=== PATIENT | male | born 1940 | race Caucasian/White ===

== ENCOUNTER → 2020-04-23 | Outpatient (CLI) | payer BC ==
[~2020-04-23] MED LIST: ASA81BEC PO; ATENOLOL 50MG T50 M1 PO; ATORVASTATIN CA40 MG PO; CENTRUM SILVER1 EAC2 PO; COUMADIN 5 MG TA5 M1 PO; GLUCOTROL5 MG PO; HYDROCODON-ACE1 EAC7 PO; LEVAQUIN 500 M500 M2 PO; LISINOPRIL20 MG; LISINOPRIL20 MG PO; MULTAQ 400 MG400 MG PO; PROTONIX40 M1 PO; UNICOMPLEX M TA1 TA1 PO; UROXATRAL PO; UROXATRAL10 MG PO; VIAGRA100 MG PO; XANAX 0.25 MG0.25 MG PO; XARELTO10 MG PO; XARELTO20 MG PO; ZESTRIL40 MG PO
== END ==
LOC: SJCVCIMAG 09:04
PROVIDERS: ATTEND Internal Medicine
DX: I08.8 Other rheumatic multiple valve diseases (principal); I65.23 Occlusion and stenosis of bilateral carotid arteries; E78.5 Hyperlipidemia, unspecified; I25.10 Atherosclerotic heart disease of native coronary artery without angina pectoris; I48.0 Paroxysmal atrial fibrillation; Z95.1 Presence of aortocoronary bypass graft; Z95.2 Presence of prosthetic heart valve

== ENCOUNTER → 2020-06-11 | Outpatient (CLI) | payer BC ==
[~2020-06-11] MED LIST changes: +CLARITIN10 M3 PO; +CLOPIDOGREL75 MG PO; +ELIQUIS5 MG PO; +FLOMAX0.4 MG PO; +LOPRESSOR50 MG PO; +METFORMIN HCL500 M3 PO; +ORADENT 0.1% DEN5 G1 TOP; +POTASSIUM20 PO; +TESTOSTERO200 MG/1 M IM; +TORSEMIDE20 MG PO; +TYLENOL325 MG PO
== END ==
LOC: SJCVCIMAG 11:37
PROVIDERS: ATTEND Internal Medicine
DX: I08.1 Rheumatic disorders of both mitral and tricuspid valves (principal); I25.10 Atherosclerotic heart disease of native coronary artery without angina pectoris; R53.83 Other fatigue; Z98.890 Other specified postprocedural states

== ENCOUNTER → 2020-06-11 | Outpatient (CLI) | payer BC, OTHER ==
[~2020-06-11] MED LIST changes: -CLARITIN10 M3 PO; -CLOPIDOGREL75 MG PO; -ELIQUIS5 MG PO; -FLOMAX0.4 MG PO; -LOPRESSOR50 MG PO; -METFORMIN HCL500 M3 PO; -ORADENT 0.1% DEN5 G1 TOP; -POTASSIUM20 PO; -TESTOSTERO200 MG/1 M IM; -TORSEMIDE20 MG PO; -TYLENOL325 MG PO
== END ==
LOC: LAB 13:15
PROVIDERS: ATTEND Internal Medicine
DX: Z01.812 Encounter for preprocedural laboratory examination (principal); Z20.822 Contact with and (suspected) exposure to COVID-19

== ENCOUNTER 2020-06-14 06:30 | Observation (INO) | payer BC, OTHER ==
[2020-06-14] VITALS (10 sets, daily range): BP systolic 105–141; BP diastolic 73–93
[~2020-06-14] VITALS: Ht 175.3 cm; Wt 107.5 kg
[2020-06-14] MEDS ORDERED: TYLENOL325 MG PO ×2 (07:37)
[2020-06-14] MEDS ORDERED: ELIQUIS5 MG PO ×2 (07:38)
[2020-06-14] MEDS ORDERED: MULTAQ 400 MG400 MG PO ×2 (07:39)
[2020-06-14] MEDS ORDERED: CLARITIN10 M3 PO ×2 (07:40)
[2020-06-14] MEDS ORDERED: LOPRESSOR50 MG PO ×2 (07:41)
[2020-06-14] MEDS ORDERED: METFORMIN HCL500 M3 PO ×2 (07:41)
[2020-06-14] MEDS ORDERED: POTASSIUM20 PO ×2 (07:42)
[2020-06-14] MEDS ORDERED: FLOMAX0.4 MG PO ×2 (07:42)
[2020-06-14] MEDS ORDERED: TESTOSTERO200 MG/1 M IM ×2 (07:43)
[2020-06-14] MEDS ORDERED: TORSEMIDE20 MG PO ×2 (07:43)
[2020-06-14] MEDS ORDERED: ORADENT 0.1% DEN5 G1 TOP ×2 (07:44)
[2020-06-14 07:53] LABS: HEMOGLOBIN 13.1 gm/dL (14.0-18.0); MCH 31.3 pg (26.0-34.0); MCHC 32.7 g/dL (28.0-37.0); MCV 95.6 fL (80.0-100.0); RBC 4.18 mil/uL (4.50-6.00); RDW 15.5 % (10.5-14.5); WBC 9.8 thou/uL (4.0-11.0)
[2020-06-14 07:58] LABS: CALCIUM 10.1 mg/dL (8.5-10.1); CREATININE 1.2 mg/dL (0.7-1.3)
--- NOTE | 2020-06-14 12:46 | CATHLAB ---
[facility] [address] [place] [address] INVASIVE PROCEDURE REPORT Name: YANELY SINCLAIR Room #: 214-P [facility] M.R.#: [id number] Admission: 06/14/20 Attend Phys: Tulio Harris MD, Discharge: Date of : 38 Report #: [id number] THIS REPORT FOR: cc: LORI BUSCH FAMILY PHYSICIAN or PCP Tulio Harris MD [facility] ~ APPROVED REPORT Study performed: 06/14/2020 07:35:31 Patient Details Patient Status: Out-Patient Room #: The patient is a 80 year-old male Event Personnel Tulio Harris Supervisor Rice Milling, Mary Koenig RN RN, Deana Andujar RTR, RUBBER BLOCK LAYER Monitor, Marlen Haddad Procedures Performed Art Access - R femoral artery* Coronary Angiography Only [id number] CORANG Supravalvular Aortography Injection [id number] ISVA CHRISTA Place w/wo Plasty Single RCA 747599 41114 Initial Mod Sed Same Phys/QHP Gr5y 611036 91439 Mod Sed Same Phys/QHP Ea 969293 Indication Dyspnea Procedure Narrative The patient was brought electively to the Cardiac Catheterization Laboratory and was prepped and draped in a sterile manner. The Right Groin^ was infiltrated with 1% Lidocaine subcutaneous anesthesia. A PINNACLE 6FR Sheath #[id number] sheath was inserted into the RFA^. Coronary angiography was performed using coronary diagnostic catheters. The right coronary system was accessed and visualized with a JR4 catheter. The left coronary system was accessed and visualized with a 6FR JL5 #[id number] catheter. An aortogram of the ascending aorta was performed. Pre-demployment femoral angiogram was performed . Closure device was deployed with a 6 Fr MYNXGRIP 6/7F #[id number]. The patient tolerated the procedure well and there were no complications associated with the procedure. There was no hematoma. Intraoperative Conscious Sedation Sedation start time: 08:23 Case end Time: [facility] [employer] [place] [address] INVASIVE PROCEDURE REPORT Name: YANELY SINCLAIR Room #: 214-P [facility]#: [id number] Admission: 06/14/20 Attend Phys: Tulio Harris, Discharge: Date of : 39 Report #: [id number] 09:45 Fentanyl 100 mcg Versed 2.0 mg Fluoro Time: 16.10 minutes Dose: DAP 81041.50 cGycm2 2625 mGy Contrast Type and Amount: Visipaque 240 ml Coronary Angiography The patient's coronary anatomy is co- dominant. [place] Artery Percent Stenosis Proximal, supravalvular aortography demonstrated a well-seated aortic bioprosthetic valve. No aortic insufficiency. No ascending aorta dilatation or dissection.. No nonselective vein graft was seen, presumed occluded. Diagnostic Cath Left Main Normal left main LAD Mild 20% proximal and mid LAD plaquing. Mid LAD stent widely patent Diagonal 1 Small first diagonal branch, normal Diagonal 2 Moderate second diagonal branch, normal Circumflex 30-40% proximal and mid circumflex plaquing. Occluded distal circumflex before a small terminal marginal branch OM1 Large OM1, mild plaquing OM2 occluded OM2 Right Coronary Mild 20-30% proximal right coronary plaquing. Mid right coronary stent with 85% stenosis of the distal margin of an old stent R PDA Mild plaquing of the origin of the posterior descending Left Ventriculography Left Ventriculography was not performed. Hemodynamics The aortic pressure is 133/77 mmHg with a mean of 101 mmHg. PCI Technique Lesion Anticoagulation was achieved with Heparin, Integrilin. Patient was preloaded with Plavix. Percutaneous coronary intervention was performed on the mid right coronary artery. A LAUNCHER 6FR JR 4 #[id number] Guide Catheter was used to engage the right coronary ostium. A Luge Wire .014 x 182CM #[id number] Interventional Guidewire was used to cross the lesion. BALLOON DILATION [facility] [address] [place] [address] INVASIVE PROCEDURE REPORT Name: YANELY SINCLAIR Room #: 214-P [facility] M.R.#: [id number] Admission: 06/14/20 Attend Phys: Tulio Harris, Discharge: Date of : 38 Report #: [id number] A Balloon catheter Euphora RX 2.5 x 12 #[id number] was inserted and inflated up to 16.00atm for 31seconds. Additional Inflation: 16.00atm for 24seconds. STENT DEPLOYMENT A drug-eluting stent RESOLUTE BEST RX 3.0 X 15 #[id number] was inserted and inflated up to 12.00atm for 36seconds. POST STENT DEPLOYMENT BALLOON DILATION A Balloon catheter Euphora NC RX 3.0 x 12 #[id number] was inserted and inflated up to 16.00atm for 36seconds. Additional Inflation: 20.00atm for 36seconds. Additional Inflation: 20.00atm for 9seconds. Final angiography reveals 0 % stenosis with MESHA 3 flow. Conclusion 1. Normal left main 2. Mild LAD plaquing. 3. Occluded distal circumflex before the origin of the second, small marginal branch. Failed sequential SVG from distal OM to PDA 4. Severe mid RCA disease stented with a 3.0 x 15 Resolute stent, post-dilated to 3.2mm 5. Normal EF by recent echocardiography Recommendations Aggressive Medical Therapy <ELECTRONICALLY SIGNED> By: Tulio Harris MD, [facility] 06/14/20 1246 1246 1246 Tulio Harris MD, FAC /INF
[2020-06-14] MEDS ORDERED: CLOPIDOGREL75 MG PO ×2 (13:05)
--- NOTE | 2020-06-14 20:01 | NUR ---
PT. ARRIVED AT FLOOR AROUND 1030; PT. AOX4; NO C/O PAIN; EDUCATED ABOUT BED REST UNTIL 1540; ST. UNDERSTANDING; EDUCATED ABOUT HOLDING PRESSURE IF COUGHIN OR LAUGHING; ST. UNDERSTANDING; EDUCATED ABOUT CALLING IF NOTICED SWELLING OR PAIN INCREASE BY SECONDS; ST. UNDERSTANDING; AT LUNCH TIME PT. C/O R SHOULDER PAIN; PRN ACETAMINOPHEN GIVEN; ST. HAVING ALLERGIES TO CODEINE; HYDROCODONE ON EMAR; PER PT. DOES NOT REMEMBER TAKING MEDICATION BEFORE; [place] TH[place] NOTIFIED; ORDERS RECEIVED; D/C HYDROCODONE; VIDALUT ON THE MONITOR; HR ON THE 130s WITH EXERTION; AMBULATE AROUND THE UNIT; HR ON THE 130s; [place]H THOM[place] NOTIFIED; PER NASH THOMPSON IF HR SUSTAINED ON THE 130s GIVE METOPROLOL EARLIER; AT DINNER PT'S HR ON THE 130s; METOPROLOL GIVEN; HR SUSTAINED ON THE 130s; EKG ORDER PER PROTOCOL; KIRAN; DR. CEDEÑO NOTIFIED; ORDERS RECEIVED; IV LOPRESSOR GIVEN; REASSESSMENT HR ON THE 110s; PASSED ON REPORT; ADMISSION PERFORMED; ASSESSMENT CHARGED; FOLLOWING POC; PASSED ON REPORT;
[2020-06-15 00:12] VITALS: BP 143/97
[2020-06-15 04:45] VITALS: BP 140/98
[2020-06-15 05:10] LABS: ALBUMIN 3.3 g/dL (3.4-5.0); ANION GAP 8 mmol/L (7-16); BUN 22 mg/dL (7-18); CHLORIDE 102 mmol/L (98-107); CO2 29 mmol/L (21-32); CREATININE 1.1 mg/dL (0.7-1.3); GLUCOSE 157 mg/dL (74-106); POTASSIUM 4.2 mmol/L (3.5-5.1); SGOT 20 U/L (15-37); SGPT 22 U/L (16-63); SODIUM 139 mmol/L (136-145); TOTAL BILIRUBIN 0.7 mg/dL (0.2-1.0); TOTAL PROTEIN 6.2 g/dL (6.4-8.2); TROPONIN-I <0.06 ng/mL (<0.06)
[2020-06-15 05:17] LABS: HEMATOCRIT 35.6 % (42.0-52.0); HEMOGLOBIN 11.9 gm/dL (14.0-18.0); MCHC 33.4 g/dL (28.0-37.0); MCV 95.8 fL (80.0-100.0); RBC 3.72 mil/uL (4.50-6.00); RDW 15.4 % (10.5-14.5); WBC 9.3 thou/uL (4.0-11.0)
--- NOTE | 2020-06-15 05:46 | NUR ---
SLEPT PART OF SHIFT. UP AD SEBASTIAN IN ROOM. HR UP TO 130'S WHEN UP TO BATHROOM BUT DECREASES ONCE BACK TO BED. DENIES COMPLAINTS OF CHEST PAIN OR SHORTNESS OF AIR. WORKING ON GOALS AND PLAN OF CARE FOR NOC. PROGRESSING TOWARDS DISCHARGE GOALS. RIGHT GROIN DRESSING REMAINS CLEAN,DRY AND INTACT. NO HEMOTOMA OR BLEEDING NOTED. SOFT TO TOUCH. CONTINUE TO ASSES CLOSELY.
--- NOTE | 2020-06-15 06:43 | NUR ---
HR PER TELEMETRY SHOWS AFLUTTER/AFIB 130'S. PATIENT RESTING WITHOUT COMPLAINTS. LOPRESSOR GIVEN IVP FOR RATE. HR NOW 90-110'S
--- NOTE | 2020-06-15 07:20 | EKG ---
[address] [address] ELECTROCARDIOGRAM REPORT Name: YANELY SINCLAIR Room #: 214-[facility]#: [id number] Admission: 06/14/20 Attend Phys: Tulio Harris MD, Discharge: Date of : 39 Report #: [id number] [facility] Test Date: 2020-06-14 Test Time: 18:24:24 Pat Name: YANELY SINCLAIR Department: Room: 214 P Gender: M Boiler Inspector: JORGE : 1940 Requested By: Tulio Harris Order Number: [id number] MD: Zion Garcia Measurements Intervals [place] Rate: 134 P: [place]: QRS: -47 QRSD: 153 T: 4 QT: 335 QTc: 501 Interpretive Statements Suspect Atrial flutter RBBB and LAFB No previous ECG available for comparison Electronically Signed On 06-15-2020 7:20:08 OPENER TENDER by Zion Garcia [email or web address] <ELECTRONICALLY SIGNED> By: Zion Garcia MD, [facility] 06/15/20 0720 1824 1824 Zion Garcia MD, FACC /EPI
[2020-06-15 07:45] VITALS: BP 147/91
[2020-06-15 11:00] VITALS: BP 140/98
--- NOTE | 2020-06-15 11:36 | EKG ---
[address] [place] [place] [address] ELECTROCARDIOGRAM REPORT Name: YANELY SINCLAIR Room #: 214-[facility].#: [id number] Admission: 06/14/20 Attend Phys: Tulio Harris MD, Discharge: 06/15/20 Date of : 39 Report #: [id number] [facility] Test Date: 2020-06-15 Test Time: 07:32:22 Pat Name: YANELY SINCLAIR Department: Room: 214 Gender: M Sap Fico Architect: JAROD : 1940 Requested By: Tulio Harris Order Number: [id number] MD: Zion Garcia Measurements Intervals [place] Rate: 139 P: [place]: QRS: -30 QRSD: 152 T: -21 QT: 342 QTc: 520 Interpretive Statements Atrial flutter Right bundle branch block ST depr, consider ischemia, anterolateral lds Compared to ECG 06/14/2020 18:24:24 Possible ischemia now present Left anterior fascicular block no longer present Electronically Signed On 06-15-2020 11:36:11 DIGITAL PRESS OPERATOR by Zion Garcia [email or web address] <ELECTRONICALLY SIGNED> By: Zion Garcia MD, FAC 06/15/20 1136 0732 0732 Zion Garcia MD, [facility] /EPI
--- NOTE | 2020-06-16 09:09 | D ---
[facility] [place] [address] DISCHARGE SUMMARY Name: YANELY SINCLAIR Room #: 214-P [facility]or [facility]oto#: [id number] Admission: 06/14/20 Attend Phys: Tulio Harris MD, Discharge: 06/15/20 Date of : 38 Report #: [id number] THIS REPORT FOR: cc: LORI BUSCH FAMILY PHYSICIAN or PCP Tulio Harris MD FACC ~ DISCHARGE DIAGNOSES: 1. Unstable angina with stenting of the mid right coronary with a 3.0 x 15 mm Resolute medicated stent. 2. Permanent atrial fibrillation. 3. Coronary artery disease with remote double vessel bypass, failed vein graft from the second marginal branch of the posterior descending. 4. Hypertension. 5. Dyslipidemia. 6. Diabetes, type 2. 7. 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 8. Hypercoagulable. HISTORY OF PRESENT ILLNESS: For the complete details of the history of present illness, see dictated history and physical. Briefly, the patient is an 80-year-old gentleman with a history of closure of a fenestrated ASD, bioprosthetic aortic valve replacement and single sequential vein graft placed to the second marginal branch with a jump sequence to the posterior descending. He now presents with significant exertional breathlessness and fatigue. Outpatient echocardiography demonstrated a normally functioning aortic bioprosthesis and normal left ventricular systolic function. His coronary artery disease is complicated and notable for multivessel stenting, both to the LAD, mid circumflex and mid right coronary. Given his exertional symptoms, reminiscent of his pre-bypass angina and pre-stenting angina, he is admitted for coronary angiography. HOSPITAL COURSE: The patient underwent coronary angiography, the results of which can be found under a separate heading and dictation. He was found to have occlusion of the vein graft to the distal marginal branch. There was mild plaquing in the LAD. The right coronary exhibited a severe mid intrastent stenosis, which was successfully stented with a 3.0 x 15 mm Resolute medicated stent, postdilated to close to 3.2 mm with a noncompliant balloon. He was treated with aspirin, Plavix, heparin and Integrilin in the periprocedural setting. He had excellent groin hemostasis at the time of discharge. His distal circumflex disease would not have been amenable to stenting given the small size of this vessel based on prebypass angiography. Continued medical therapy and aggressive risk factor modification is recommended. The patient was ambulating and pain free at the time of discharge. Medicines were reconciled. DISCHARGE MEDICATIONS: Include the following: Apixaban 5 mg twice daily, atorvastatin 40 mg daily, lisinopril 40 mg daily, metformin 500 mg daily, metoprolol 100 mg twice daily, Plavix 75 mg daily, aspirin 81 mg daily, Protonix [address] [address] DISCHARGE SUMMARY Name: YANELY SINCLAIR Room #: 214-P [facility]#: [id number] Admission: 06/14/20 Attend Phys: Tulio Harris MD, Discharge: 06/15/20 Date of : 38 Report #: [id number] 40 mg daily, torsemide 20 mg with potassium 20 mEq on an as needed basis, Flomax 0.4 mg daily. DISCHARGE DIET: Prudent diabetic diet, heart healthy. DISCHARGE ACTIVITY: As instructed post-catheterization. FOLLOWUP: With myself in 1 month. Follow up with Dr. Busch as directed. DISCHARGE CONDITION: Stable and improved. <ELECTRONICALLY SIGNED> By: Tulio Harris MD, FACC 06/16/20 0909 1257 1308 Tulio Harris MD, FACC /nt
== END 2020-06-15 11:16 | disposition home or self-care (01) ==
LOC: CATH 06:30 → 2N 10:18 → CATH 13:06 → 2N 06-15 11:16
PROVIDERS: ADMIT Internal Medicine; ATTEND Internal Medicine
DX: I25.110 Atherosclerotic heart disease of native coronary artery with unstable angina pectoris (principal); I10 Essential (primary) hypertension; E78.5 Hyperlipidemia, unspecified; D68.69 Other thrombophilia; E11.9 Type 2 diabetes mellitus without complications; I48.21 Permanent atrial fibrillation; Z79.899 Other long term (current) drug therapy; Z79.82 Long term (current) use of aspirin

== ENCOUNTER → 2021-06-03 | Outpatient (CLI) | payer OTHER ==
[~2021-06-03] MED LIST changes: +CLARITIN10 M3 PO; +CLOPIDOGREL75 MG PO; +ELIQUIS5 MG PO; +FLOMAX0.4 MG PO; +LOPRESSOR50 MG PO; +METFORMIN HCL500 M3 PO; +ORADENT 0.1% DEN5 G1 TOP; +POTASSIUM20 PO; +TESTOSTERO200 MG/1 M IM; +TORSEMIDE20 MG PO; +TYLENOL325 MG PO
== END ==
LOC: SJCVCIMAG 09:29
PROVIDERS: ATTEND Internal Medicine
DX: I08.8 Other rheumatic multiple valve diseases (principal); I65.23 Occlusion and stenosis of bilateral carotid arteries; R94.31 Abnormal electrocardiogram [ECG] [EKG]; I45.10 Unspecified right bundle-branch block; I25.10 Atherosclerotic heart disease of native coronary artery without angina pectoris; I48.11 Longstanding persistent atrial fibrillation; E78.5 Hyperlipidemia, unspecified; E11.9 Type 2 diabetes mellitus without complications; Z95.1 Presence of aortocoronary bypass graft; Z95.4 Presence of other heart-valve replacement; Z72.89 Other problems related to lifestyle; Z79.01 Long term (current) use of anticoagulants; Z79.84 Long term (current) use of oral hypoglycemic drugs; Z79.899 Other long term (current) drug therapy; Z82.49 Family history of ischemic heart disease and other diseases of the circulatory system; Z88.5 Allergy status to narcotic agent

== ENCOUNTER → 2021-06-28 | Outpatient (CLI) | payer OTHER | LOC: RAD 11:58 | PROVIDERS: ATTEND Internal Medicine | DX: J84.9 Interstitial pulmonary disease, unspecified (principal); J98.4 Other disorders of lung ==

== ENCOUNTER → 2021-06-28 | Outpatient (CLI) | payer OTHER | LOC: SJCVC 10:25 | PROVIDERS: ATTEND Internal Medicine | DX: I25.10 Atherosclerotic heart disease of native coronary artery without angina pectoris (principal); I48.11 Longstanding persistent atrial fibrillation; E78.5 Hyperlipidemia, unspecified; I65.23 Occlusion and stenosis of bilateral carotid arteries; E11.9 Type 2 diabetes mellitus without complications; R05.9 Cough, unspecified; R53.83 Other fatigue; Z95.1 Presence of aortocoronary bypass graft; Z95.4 Presence of other heart-valve replacement; Z79.01 Long term (current) use of anticoagulants; Z98.61 Coronary angioplasty status; Z98.890 Other specified postprocedural states; Z79.82 Long term (current) use of aspirin; Z79.84 Long term (current) use of oral hypoglycemic drugs; Z79.899 Other long term (current) drug therapy; Z88.5 Allergy status to narcotic agent ==